=== PATIENT | female | born 2000 | race African-American/Black ===

== ENCOUNTER → 2024-03-19 | Outpatient (CLI) | payer BC ==
[~2024-03-19] MED LIST: GADOTERATE MEGLUMINE 10 MMOL/20 ML VIAL IV ONE
== END | disposition home or self-care (01) ==
LOC: RAH 07:48
PROVIDERS: ATTEND Optometrist
DX: I67.82 Cerebral ischemia (principal); H47.013 Ischemic optic neuropathy, bilateral
CPT/HCPCS: 70553; 70543; A9575